=== PATIENT | female | born 1975 | race Caucasian/White ===

== ENCOUNTER 2017-05-25 17:26 | Emergency (ER) | payer OTHER ==
[~2017-05-25] VITALS: Ht 170.2 cm; Wt 68.0 kg
[2017-05-25 17:49] VITALS: Ht 170.2 cm; Wt 68.0 kg
[2017-05-25 19:49] LABS: BASOPHILS % 0.3 % (0.0-2.0); EOSINOPHILS # 0.1 10^3/ul (0.0-0.5); EOSINOPHILS % 2.1 % (0.0-7.0); HEMOGLOBIN 11.5 g/dl (12.0-16.0); LYMPHOCYTES % 29.4 % (15.0-51.0); MEAN CORPUSCULAR HGB CONC 32.9 g/dl (32.0-37.0); MEAN CORPUSCULAR VOLUME 94.3 fl (82.0-101.0); MEAN PLATELET VOLUME 10.3 fl (7.4-10.4); MONOCYTE # 0.5 10^3/ul (0.3-0.9); MONOCYTES % 7.2 % (0.0-11.0); NEUTROPHIL # 4.1 10^3/ul (1.6-7.5); NEUTROPHILS % 60.7 % (39.0-77.0); PLATELET COUNT 263 10^3/UL (140-415); RED BLOOD COUNT 3.71 10^6/ul (4.20-5.40); RED CELL DISTRIBUTION WIDTH 12.7 % (11.5-14.5); WHITE BLOOD COUNT 6.7 10^3/ul (4.8-10.8)
[2017-05-25 19:52] LABS: ADD UMIC YES; UR ASCORBIC ACID NEGATIVE (NEGATIVE); UR BILIRUBIN (Dip) NEGATIVE (NEGATIVE); UR BLOOD (Dip) 3+ mg/dL (NEGATIVE); UR CLARITY CLEAR (CLEAR); UR COLOR YELLOW (YELLOW); UR GLUCOSE (Dip) NEGATIVE (NEGATIVE); UR KETONES (Dip) TRACE mg/dL (NEGATIVE); UR LEUKOCYTE ESTERASE (Dip) NEGATIVE Leu/ul (NEGATIVE); UR MUCUS FEW /HPF (NONE SEEN); UR NITRITE (Dip) NEGATIVE (NEGATIVE); UR RBC 2 /HPF (0-5); UR SPECIFIC GRAVITY (Dip) 1.018 (1.003-1.030); UR TOTAL PROTEIN (Dip) NEGATIVE (NEGATIVE); UR UROBILINOGEN (Dip) NEGATIVE (NEGATIVE)
[2017-05-25 20:08] LABS: ALBUMIN 4.6 g/dl (3.3-4.9); ALBUMIN/GLOBULIN RATIO 1.58; BILIRUBIN,INDIRECT 0.7 mg/dl (0-1.1); BILIRUBIN,TOTAL 0.7 mg/dl (0.2-1.3); CALCIUM 9.3 mg/dl (8.4-10.2); CREATININE 0.72 mg/dl (0.44-1.00); POTASSIUM 3.7 mmol/L (3.5-5.1); TOTAL PROTEIN 7.5 g/dl (6.1-8.1)
--- NOTE | 2017-05-25 20:37 | RADRPT ---
PROCEDURE: US Pelvis. CLINICAL INDICATION: Pelvic pain. History of left ovary removed LAST MENSTRUAL PERIOD: 05/24/2017 TECHNIQUE: Multiple sonographic images of the pelvis were obtained utilizing a transabdominal and endovaginal technique. COMPARISON: None FINDINGS: The uterus is visualized and measures 10.6 x 4.2 x 5.4 cm. Nabothian cysts. The endometrial echo com plex is thickened with endometrial canal containing echogenic debris and measures 9 mm. Small amount of pelvic free fluid. The right ovary has a normal echotexture and measures 6.0 x 3.9 x 4.0 cm. The left ovary is surgica lly absent. Normal right ovarian blood flow. Multiple echogenic right ovarian cysts, largest cyst wi th internal echogenicity measuring 4.9 cm. IMPRESSION: Echogenic debris within the endometrial canal may represent blood clots or polyp. Multiple echogenic right ovarian cysts may represent hemorrhagic cysts or endometriomas. Small amount of pelvic free fluid may be physiologic at this age. Recommend follow-up ultrasound in 2 months, 1 week after menstruation. RPTAT:AAJJ Physician Brian Date Time Electronically viewed and signed by Physician Brian on 05/25/2017 20:37 /
--- NOTE | 2017-05-25 23:06 | ERD ---
ER Documentation Chief Complaint Chief Complaint Pt with Heavy menses X 3 months HPI 42-year-old female complaining of heavy menses for the last 3 months. Patient states that she has not taken her control pills for 4 months. Ever since stopping her control pills she has noticed some heavy menstrual periods. This month her period has become a lot more severe and she is passing golf size clots yesterday. Patient states she has mild lightheadedness. Denies chest pain. Denies medical problems. NKDA. Surgical history . Removal of dermoid cyst were heard on her left ovary with oophorectomy. ROS All systems reviewed and are negative except as per history of present illness. PMhx/Soc Medical and Surgical Hx: pt denies Medical Hx, pt denies Surgical Hx Hx Alcohol Use: No Hx Substance Use: No Hx Tobacco Use: No Smoking Status: Never smoker Physical Exam Vitals Vital Signs Date Time Temp Pulse Resp B/P Pulse Ox O2 Delivery O2 Flow Rate FiO2 05/25/17 17:49 97.9 62 18 121/61 100 Physical Exam Const: [] Head: Atraumatic Eyes: Normal Conjunctiva ENT: Normal External Ears, Nose and Mouth. Neck: Full range of motion..~ No meningismus. Resp: Clear to auscultation bilaterally Cardio: Regular rate and rhythm, no murmurs Abd: Soft, non tender, non distended. Normal bowel sounds Skin: No petechiae or rashes Back: No midline or flank tenderness Ext: No cyanosis, or edema Neur: Awake and alert Psych: Normal Mood and Affect Result Diagram: 05/25/17192905/25/171929 Results 24 hrs Laboratory Tests Test 05/25/17 19:30 White Blood Count 6.710^3/ul Red Blood Count 3.7110^6/ul Hemoglobin 11.5g/dl Hematocrit 35.0% Mean Corpuscular Volume 94.3fl Mean Corpuscular Hemoglobin 31.0pg Mean Corpuscular Hemoglobin Concent 32.9g/dl Red Cell Distribution Width 12.7% Platelet Count 90550^3/UL Mean Platelet Volume 10.3fl Neutrophils % 60.7% Lymphocytes % 29.4% Monocytes % 7.2% Eosinophils % 2.1% Basophils % 0.3% Nucleated Red Blood Cells % 0.0/100WBC Neutrophils # 4.110^3/ul Lymphocytes # 2.010^3/ul Monocytes # 0.510^3/ul Eosinophils # 0.110^3/ul Basophils # 0.010^3/ul Nucleated Red Blood Cells # 0.010^3/ul Urine Color YELLOW Urine Clarity CLEAR Urine pH 5.0 Urine Specific [place] 1.018 Urine Ketones TRACEmg/dL Urine Nitrite NEGATIVEmg/dL Urine Bilirubin NEGATIVEmg/dL Urine Urobilinogen NEGATIVEmg/dL Urine Leukocyte Esterase NEGATIVELeu/ul Urine Microscopic RBC 2/HPF Urine Microscopic WBC 1/HPF Urine Mucus FEW/HPF Urine Hemoglobin 3+mg/dL Urine Glucose NEGATIVEmg/dL Urine Total Protein NEGATIVEmg/dl Sodium Level 139mmol/L Potassium Level 3.7mmol/L Chloride Level 104mmol/L Carbon Dioxide Level 26mmol/L Anion Gap 13 Blood Urea Nitrogen 10mg/dl Creatinine 0.72mg/dl Glucose Level 81mg/dl Calcium Level 9.3mg/dl Total Bilirubin 0.7mg/dl Direct Bilirubin 0.00mg/dl Indirect Bilirubin 0.7mg/dl Aspartate Amino Transf (AST/SGOT) 22IU/L Alanine Aminotransferase (ALT/SGPT) 27IU/L Alkaline Phosphatase 53IU/L Total Protein 7.5g/dl Albumin 4.6g/dl Globulin 2.90g/dl Albumin/Globulin Ratio 1.58 Serum HCG, Qualitative POSITIVE Beta HCG, Quantitative 504.4mIU/ml Procedures/MDM DIAGNOSTIC IMAGING REPORT Patient: JEANNIE SILVESTRE : 1975 Age: 42 Sex: F MR #: [id number] DOS: 05/25/17 [facility] Ordering MD: MARI LORENZO PA-C Location: [facility] Room/Bed: PROCEDURE: US Pelvis. CLINICAL INDICATION: Pelvic pain. History of left ovary removed LAST MENSTRUAL PERIOD: 05/24/2017 TECHNIQUE: Multiple sonographic images of the pelvis were obtained utilizing a transabdominal and endovaginal technique. COMPARISON: None FINDINGS: The uterus is visualized and measures 10.6 x 4.2 x 5.4 cm. Nabothian cysts. The endometrial echo complex is thickened with endometrial canal containing echogenic debris and measures 9 mm. Small amount of pelvic free fluid. The right ovary has a normal echotexture and measures 6.0 x 3.9 x 4.0 cm. The left ovary is surgically absent. Normal right ovarian blood flow. Multiple echogenic right ovarian cysts, largest cyst with internal echogenicity measuring 4.9 cm. IMPRESSION: Echogenic debris within the endometrial canal may represent blood clots or polyp. Multiple echogenic right ovarian cysts may represent hemorrhagic cysts or endometriomas. Small amount of pelvic free fluid may be physiologic at this age. Recommend follow-up ultrasound in 2 months, 1 week after menstruation. MDM: 42 yr old female complaining of heavy vaginal bleeding. Patient's urine is positive but beta quant levels are 500. Patient may have been experiencing a miscarriage however I told patient to return in 2 days for recheck of beta quant levels. I have low suspicion for ectopic but it is not completely ruled out at this time. I have low suspicion for hemodynamic instability. Patient was told if symptoms change or worsen to return the ER immediately. Patient was told to return in 2 days for recheck levels. Patient understood and complied. Departure Diagnosis: Primary Impression: Vaginal bleeding Condition: Stable Patient Instructions: Miscarriage (Incomplete) Referrals: [facility] [place] [id number] [facility] [address] [place] [address]ABUSLEME CORNELIA [address] [place], [place] [id number] [facility] [address] [place] [address] [address] [facility] [address] [address] [place] [address] [facility] [address] [place] [address] [address] [id number] [address] [facility] [address] [place] [address] [facility] [address], [place] [address] [address] ALONZO [address] [place] [address] Additional Instructions: FOLLOW UP WITH YOUR PRIMARY CARE PHYSICIAN TOMORROW.Return to this facility if you are not improving as expected. SARAH LORENZO PA-C May 25, 2017 23:06
== END 2017-05-25 21:47 | disposition home or self-care (01) ==
LOC: FTE 17:26
DX: N93.9 Abnormal uterine and vaginal bleeding, unspecified (principal); R10.2 Pelvic and perineal pain
CPT/HCPCS: 36415; 76830; 76856; 80053; 81001; 84702; 84703; 85025; Z7502

== ENCOUNTER 2017-05-28 06:01 | Emergency (ER) | payer OTHER ==
[~2017-05-28] VITALS: Ht 170.2 cm; Wt 68.0 kg
[2017-05-28 06:03] VITALS: Ht 170.2 cm; Wt 68.0 kg
[2017-05-28 06:50] LABS: BASOPHILS % 0.2 % (0.0-2.0); EOSINOPHILS # 0.1 10^3/ul (0.0-0.5); EOSINOPHILS % 1.1 % (0.0-7.0); HEMATOCRIT 32.1 % (37.0-47.0); HEMOGLOBIN 10.9 g/dl (12.0-16.0); LYMPHOCYTES # 1.1 10^3/ul (0.8-2.9); LYMPHOCYTES % 17.3 % (15.0-51.0); MEAN CORPUSCULAR HEMOGLOBIN 31.8 pg (29.0-33.0); MEAN CORPUSCULAR VOLUME 93.6 fl (82.0-101.0); MEAN PLATELET VOLUME 10.3 fl (7.4-10.4); MONOCYTE # 0.3 10^3/ul (0.3-0.9); MONOCYTES % 5.3 % (0.0-11.0); NEUTROPHIL # 4.7 10^3/ul (1.6-7.5); NEUTROPHILS % 75.8 % (39.0-77.0); PLATELET COUNT 239 10^3/UL (140-415); RED BLOOD COUNT 3.43 10^6/ul (4.20-5.40); RED CELL DISTRIBUTION WIDTH 12.9 % (11.5-14.5); WHITE BLOOD COUNT 6.2 10^3/ul (4.8-10.8)
--- NOTE | 2017-05-28 07:16 | RADRPT ---
PROCEDURE: US pelvis complete and transvaginal CLINICAL INDICATION: Vaginal bleeding. TECHNIQUE: Zamora scale and color Doppler imaging of the pelvis was performed. Endovaginal scanning was performed for more detailed evaluation of the endometrium. The images were reviewed on a PACS workstation. COMPARISON: 05/25/2017 FINDINGS: The uterus measures 10.2 x 4.8 x 5.6 centimeters. The right ovary measures 7.1 x 4.5 x 7.2 centimet ers and the left ovary is surgically absent. The endometrial stripe was not measured by the sonogra pher but again appears to be heterogeneous and thickened, measuring perhaps as much as [address] No definite intrauterine gestational sac is seen. No fibroids are seen. Multiple right ovarian cysts are again seen, some with septations and internal debris. The largest measures 4.7 x 4.2 x 5.1 cm. Color flow of the right ovary is seen with arterial flow documented within a septation in the r ight ovary. Cervical Nabothian cysts are seen. No ectopic was seen. The study was requeste d to evaluate possible first trimester although test was not reported. IMPRESSION: Thickened and heterogeneous endometrial stripe which could be due to hemorrhagic debris. No definite intrauterine gestational sac. Ectopic cannot be excluded although not visualized. Right o varian cysts, some slightly complex. Mild free fluid. RPTAT: HLBE Physician Ty Date Time Electronically viewed and signed by Rebecca Romero Physician on 05/28/2017 07:16 JOSH/
--- NOTE | 2017-05-28 08:35 | ERD ---
ER Documentation Chief Complaint Chief Complaint Was told to return to re-draw blood levels. HPI 42-year-old female sent to the emergency room for recheck of beta quant levels. Patient states over the last 4 months she has had intermittent heavy periods and was found to have an elevated beta quant level at her previous visit 3 days ago. Patient was unaware that she was . Patient had recently experienced experiencing heavy bleeding with clots 4 days ago. She states that the bleeding has resolved since her previous visit. Patient denies any severe abdominal pain. Patient denies any fevers. ROS All systems reviewed and are negative except as per history of present illness. PMhx/Soc Medical and Surgical Hx: pt denies Medical Hx, pt denies Surgical Hx Hx Alcohol Use: No Hx Substance Use: No Hx Tobacco Use: No Smoking Status: Never smoker Physical Exam Vitals Vital Signs Date Time Temp Pulse Resp B/P Pulse Ox O2 Delivery O2 Flow Rate FiO2 05/28/17 06:03 98.0 68 18 116/58 99 Physical Exam GENERAL: The patient is well-appearing, well-nourished, in no acute distress CHEST: Clear to auscultation bilaterally. There are no rales, wheezes or rhonchi. HEART: Regular rate and rhythm. No murmurs, clicks, rubs or gallops. No S3 or S4. ABDOMEN:Soft, nontender and nondistended. Good bowel sounds. No rebound or guarding. No gross peritonitis. No gross organomegaly or masses. No Flores sign or McBurney point tenderness. BACK: No midline or flank tenderness. Result Diagram: 05/28/17 0633 Results 24 hrs Laboratory Tests Test 05/28/17 06:33 White Blood Count 6.210^3/ul Red Blood Count 3.4310^6/ul Hemoglobin 10.9g/dl Hematocrit 32.1% Mean Corpuscular Volume 93.6fl Mean Corpuscular Hemoglobin 31.8pg Mean Corpuscular Hemoglobin Concent 34.0g/dl Red Cell Distribution Width 12.9% Platelet Count 88937^3/UL Mean Platelet Volume 10.3fl Neutrophils % 75.8% Lymphocytes % 17.3% Monocytes % 5.3% Eosinophils % 1.1% Basophils % 0.2% Nucleated Red Blood Cells % 0.0/100WBC Neutrophils # 4.710^3/ul Lymphocytes # 1.110^3/ul Monocytes # 0.310^3/ul Eosinophils # 0.110^3/ul Basophils # 0.010^3/ul Nucleated Red Blood Cells # 0.010^3/ul Beta HCG, Quantitative 283.3mIU/ml Procedures/MDM DIAGNOSTIC IMAGING REPORT Patient: JEANNIE SILVESTRE : 1975 Age: 42 Sex: F MR #: [id number] DOS: 05/28/17 0619 Ordering MD: MARI LORENZO PA-C Location: [facility] Room/Bed: PROCEDURE: US pelvis complete and transvaginal CLINICAL INDICATION: Vaginal bleeding. TECHNIQUE: Zamora scale and color Doppler imaging of the pelvis was performed. Endovaginal scanning was performed for more detailed evaluation of the endometrium. The images were reviewed on a PACS workstation. COMPARISON: 05/25/2017 FINDINGS: The uterus measures 10.2 x 4.8 x 5.6 centimeters. The right ovary measures 7.1 x 4.5 x 7.2 centimeters and the left ovary is surgically absent. The endometrial stripe was not measured by the reprographics associate but again appears to be heterogeneous and thickened, measuring perhaps as much as 2 cm in diameter. No definite intrauterine gestational sac is seen. No fibroids are seen. Multiple right ovarian cysts are again seen, some with septations and internal debris. The largest measures 4.7 x 4.2 x 5.1 cm. Color flow of the right ovary is seen with arterial flow documented within a septation in the right ovary. Cervical Nabothian cysts are seen. No ectopic was seen. The study was requested to evaluate possible first trimester although test was not reported. IMPRESSION: Thickened and heterogeneous endometrial stripe which could be due to hemorrhagic debris. No definite intrauterine gestational sac. Ectopic cannot be excluded although not visualized. Right ovarian cysts, some slightly complex. Mild free fluid. MDM: 42-year-old female complaining of vaginal bleeding. Patient recently experienced a miscarriage and her beta quant levels appear to be decreasing. I have low suspicion for retained products as beta quant levels are decreasing and no retained products are appreciated on ultrasound. I recommend patient to follow-up with [facility] within the next 1-2 days for close evaluation. Patient is told she develops fever or worsening symptoms to return immediately to the emergency room. I have low suspicion for ectopic as beta quant levels are decreasing. Patient is told if symptoms change or worsen to return immediately to the emergency room. Patient will follow up with [facility]. All questions answered at discharge. Departure Diagnosis: Primary Impression: Vaginal bleeding Condition: Stable Patient Instructions: Miscarriage, Spontaneous (Completed) Referrals: [facility] [place] [address] [facility] [address] [place] [address] OFFICE FAX , [facility] [address] [place] [address] [address] LEV[address] [address] [place] [address] [address] [facility] [address] [facility], [address] [address] [address] [address] [place] [address] [facility] [address] [place] [address] [facility] [address] [address] [facility] [facility] [address] [place] [address] [facility]. [address], [place] [address] ANTOINE ALONZO [address] [place], [place] [address] Additional Instructions: FOLLOW UP WITH YOUR PRIMARY CARE PHYSICIAN TOMORROW.Return to this facility if you are not improving as expected. SARAH LORENZO PA-C May 28, 2017 08:35
== END 2017-05-28 07:38 | disposition home or self-care (01) ==
LOC: FTE 06:01
DX: O20.9 Hemorrhage in early pregnancy, unspecified (principal); R10.2 Pelvic and perineal pain; Z3A.00 Weeks of gestation of pregnancy not specified
CPT/HCPCS: 36415; 76801; 76817; 84702; 85025; 86900; 86901; Z7502